=== PATIENT | female | born 1950 | race Caucasian/White ===

== ENCOUNTER → 2017-10-04 | Outpatient (CLI) | payer MEDICARE ==
--- NOTE | 2017-10-04 13:02 | BD ---
EXAMINATION TYPE: Axial Bone Density DATE OF EXAM: 10/04/2017 COMPARISON: NONE CLINICAL HISTORY: screening Height: 5'3 Weight: 149 FRAX RISK QUESTIONS: Family History (Parent hip fracture): y Glucocorticoids (More than 3mos): y (Ex: prednisone, prednisolone, methylprednisolone, dexamethasone, and hydrocortisone). Secondary Osteoporosis: Rheumatoid Arthritis: y RISK FACTORS HISTORY OF FX: rt wrist age: child Surgery /Hip(right): total rt hip When: 2007 Postmenopausal woman: MEDICATIONS: Prednisone or other steroids: y How Lon weeks Additional Medications: blood pressure, rheumatoid arthritis, acid reflux Additional History: EXAM MEASUREMENTS: Bone mineral densitometry was performed using the INFIMET System. Bone mineral density as measured about the Lumbar spine is: ----- L1-L4(G/cm2): 1.377 T Score Values are as follows: ----- L2: 0.1 ----- L3: 2.1 ----- L4: 2.2 ----- L1-L4:1.1 Bone mineral density about the L hip (g/cm2): 0.850 T Score values are as follows: -----L Neck: -0.8 -----L Total: -1.3 IMPRESSION: Osteopenia (T Score between -2.5 and -1) overall in the left hip.. There is slightly increased risk of fracture and the patient may be considered for treatment. Re-Screen 2-5 years. NOTE: T-SCORE=SD OF THE YOUNG ADULT MEAN.
--- NOTE | 2017-10-05 12:40 | MM ---
Reason for exam: screening (asymptomatic). Last mammogram was performed 2 years and 6 months ago. History: Patient is postmenopausal. Took estrogen for 8 years beginning at age 54. Physical Findings: A clinical breast exam by your physician is recommended on an annual basis and results should be correlated with mammographic findings. MG 3D Screening Mammo W/Cad Bilateral CC and MLO view(s) were taken. Prior study comparison: April 11, 2015, right breast MG 3d work up w/cad RT. April 02, 2015, bilateral MG screening mammo w CAD. The breast tissue is heterogeneously dense. This may lower the sensitivity of mammography. There is no discrete abnormality. No significant changes when compared with prior studies. ASSESSMENT: Negative, BI-RAD 1 RECOMMENDATION: Routine screening mammogram of both breasts in 1 year.
== END | disposition home or self-care (01) ==
LOC: RADMAMWWP 11:21
PROVIDERS: ATTEND Family Medicine
DX: Z12.31 Encounter for screening mammogram for malignant neoplasm of breast (principal); Z13.820 Encounter for screening for osteoporosis; M85.852 Other specified disorders of bone density and structure, left thigh
CPT/HCPCS: 77063; 77067; 77080

== ENCOUNTER → 2018-11-02 | Outpatient (CLI) | payer MEDICARE ==
[2018-11-02 11:12] LABS: Prothrombin Time 10.4 sec (9.0-12.0)
[2018-11-02 11:20] LABS: Anisocytosis Slight; Basophils % (A) 0 %; Eosinophils # (A) 0.2 k/uL (0-0.7); Eosinophils % (A) 3 %; HCT 40.6 % (34.0-46.0); HGB 12.8 gm/dL (11.4-16.0); Hypochromasia Slight; Lymphocytes # (A) 1.6 k/uL (1.0-4.8); Lymphocytes % (A) 24 %; MCH 27.5 pg (25.0-35.0); MCHC 31.5 g/dL (31.0-37.0); MCV 87.3 fL (80.0-100.0); Monocytes # (A) 0.3 k/uL (0-1.0); Monocytes % (A) 5 %; Neutrophils # (A) 4.4 k/uL (1.3-7.7); Neutrophils % (A) 67 %; Platelet Count 258 k/uL (150-450); RBC 4.66 m/uL (3.80-5.40); RDW 16.8 % (11.5-15.5); WBC 6.6 k/uL (3.8-10.6)
[2018-11-02 11:31] LABS: Potassium 4.2 mmol/L (3.5-5.1)
== END | disposition home or self-care (01) ==
LOC: LABPAT 10:11
PROVIDERS: ATTEND Orthopaedic Surgery
DX: Z01.812 Encounter for preprocedural laboratory examination (principal); M16.12 Unilateral primary osteoarthritis, left hip
CPT/HCPCS: 36415; 80051; 85025; 85610; 87070

== ENCOUNTER 2018-11-13 08:47 | Inpatient (IN) | payer MEDICARE ==
[2018-11-06 13:23] VITALS: BMI 27.4
--- NOTE | 2018-11-13 00:36 | HP ---
HISTORY AND PHYSICAL Suzanne Alejandro is a 68-year-old patient seen with symptomatic left hip osteoarthritis. We discussed options for treatment. The patient elected to proceed left total hip arthroplasty via direct anterior approach. Consent was obtained. Medical clearance was provided by Dr. Sissy Taveras. PAST MEDICAL HISTORY: Hypertension. Rheumatoid arthritis, gastroesophageal reflux disease. PAST SURGICAL HISTORY: Tubal ligation, cholecystectomy, hysterectomy, bladder suspension surgery, right total hip arthroplasty. DAILY MEDICATIONS: Aspirin, Benicar, Cardizem, Nexium, Zyrtec. ALLERGIES: PENICILLIN. SOCIAL HISTORY: She denies tobacco use. PHYSICAL EVALUATION: Evaluation of the left hip reveals she has limited range of motion with severe pain. Positive hip impingement sign. Straight leg raise negative. Distal neurovascular exam is intact. RADIOGRAPHS: Radiographs of the left hip reveal severe osteoarthritic changes. IMPRESSION: 1. Left hip osteoarthritis. 2. Hypertension. 3. Gastroesophageal reflux disease. PLAN: Direct anterior left total hip arthroplasty. Surgery scheduled for 11/13/2018. MMODL / IJN: [id number] /
[~2018-11-13 08:47] MED LIST: ACETAMINOPHEN TAB 500 MG TAB PO ONE; DEXAMETHASONE SOD PHOSPHATE 10 MG/ML 1 ML VIAL IV ONE; LIDOCAINE 1% 20 ML VIAL (10MG/ML) FOR IV START INTRADERMA PRN; MELOXICAM 7.5 MG TAB PO ONE; MIDAZOLAM 2 MG/2 ML VIAL IV PRN; ROPIVACAINE 246.25 MG, EPINEPHrine 0.5 MG, KETOROLAC 30 MG, cloNIDine HCL/PF 80 MCG, WA... MISCELLANE ONE; TRANEXAMIC ACID 1,000 MG in SODIUM CHLORIDE 0.9% 100 ML IVPB ONE; fentaNYL (PF) 50 MCG/ML 2 ML AMP IV PRN
[2018-11-13] MEDS: LACTATED RINGERS 1,000 ML IV SCH ×3 (13:52→18:19)
[2018-11-13] MEDS ORDERED: DEXAMETHASONE SOD PHOSPHATE 10 MG/ML 1 ML VIAL IV ONE (14:15)
[2018-11-13] MEDS ORDERED: ONDANSETRON 4 MG/2 ML VIAL IVP ONE (14:15)
[2018-11-13] MEDS ORDERED: SODIUM CHLORIDE 0.9% 100 ML BAG ONE (14:59)
[2018-11-13] MEDS ORDERED: MIDAZOLAM 2 MG/2 ML VIAL ONE (14:59)
[2018-11-13] MEDS ORDERED: fentaNYL (PF) 50 MCG/ML 2 ML AMP ONE (14:59)
[2018-11-13] MEDS ORDERED: PHENYLEPHRINE-0.9% NACL SYG 1 MG/10 ML SYRINGE ONE (14:59)
[2018-11-13] MEDS ORDERED: TRANEXAMIC ACID 1,000 MG/10 ML VIAL ONE (14:59)
[2018-11-13] MEDS ORDERED: ePHEDrine SULFATE/0.9% NACL/PF 50 MG/5 ML SYRINGE IV ONE (14:59)
[2018-11-13] MEDS ORDERED: PROPOFOL 10 MG/ML 20 ML VIAL IV ONE (14:59)
[2018-11-13] MEDS ORDERED: LACTATED RINGERS 1,000 ML IV ONE (16:49)
[2018-11-13] MEDS ORDERED: hydrOXYzine PAMOATE 25 MG CAP PO PRN (16:53)
[2018-11-13] MEDS ORDERED: HYDROmorphone 1 MG/ML 1 ML SYRINGE IVP PRN (16:53)
[2018-11-13] MEDS ORDERED: HYDROmorphone 0.5 MG/0.5 ML SYRINGE IVP PRN ×2 (16:53)
[2018-11-13] MEDS ORDERED: ACETAMINOPHEN TAB 325 MG TAB PO PRN (16:53)
[2018-11-13] MEDS ORDERED: NALOXONE 0.4 MG/ML 1 ML VIAL IV PRN (16:53)
--- NOTE | 2018-11-13 16:53 | P.OP ---
Date of Procedure: 11/13/18 Preoperative Diagnosis: Left hip osteoarthritis Postoperative Diagnosis: Left hip osteoarthritis Procedure(s) Performed: Direct anterior left total hip arthroplasty Implants: 1. Depuy Corail KA size 12 with collar press-fit femoral stem 2. Depuy pinnacle 54 mm press-fit acetabular shell 3. Depuy pinnacle polyethylene acetabular liner neutral 54 mm OD 36 mm ID 4. Biolox delta ceramic femoral head +5 36 mm Anesthesia: local, spinal Surgeon: Byron Braden Domestic Cleaner #1: Michael Hess Estimated Blood Loss (ml): 500 Pathology: other (Femoral head) Condition: stable Disposition: PACU Indications for Procedure: 68-year-old patient seen with symptomatic left hip osteoarthritis. After treatment options were discussed, she elected to proceed with total hip arthroplasty. Operative Findings: See description of procedure Description of Procedure: The patient was taken to the operative suite. Patient underwent a spinal anesthetic by the department of anesthesia. Patient was then transferred to the [place] table. Patient was given preoperative IV antibiotics and TXA. Both lower extremities were placed in standard leg spars. The hip was then prepped and draped in the normal sterile orthopedic fashion. A standard anterior incision was made beginning 3 cm lateral and 1 cm distal to the ASIS extending 10 cm. Dissection was then carried down through the subcutaneous soft tissues down to the fascia overlying the tensor fascia sara. An incision was now made through the fascia. Careful dissection was taken down exposing the tensor fascia sara muscle. A Cobra retractor was now placed along the medial femoral neck and a second one along the lateral femoral neck. The venous circumflex vessels were now identified, cauterized and clipped. We identified the anterior hip capsule. An incision was made through the hip capsule along the lateral border. I performed a partial anterior capsulectomy. Retractors were now placed around the femoral neck itself. A femoral neck cut was now made with a sagittal saw. It was completed with an osteotome at the lateral neck area. The femoral head was now removed without difficulty. The extremity was now rotated to 45 of external rotation. It was locked in position. Residual labrum was now debrided out. Serial reaming was performed of the acetabulum while Bobby MARIN assisted holding an anterior retractor for exposure. Once we reached the appropriate size and a trial was position and fit nicely. The appropriate size was now chosen opened and made available. It was introduced into the acetabulum without difficulty. The C-arm/fluoroscopy was now brought into the operative field. We made sure we had a true AP pelvic view. We now under direct C- arm/fluoroscopy introduced into the acetabular component with appropriate version and inclination. I held the cup in appropriate position well Bobby MARIN used a mallet to seat the acetabular component. I noted the component now to be well seated and stable. Acetabular cup introduce her was removed. The C-arm was pulled back. An appropriate liner was introduced and clicked into position. It was felt to be stable. At this point retractors were removed. The extremity was now placed into 120 external rotation with no traction. The leg was now dropped to the ground and adducted. Appropriate retractors were now positioned along the proximal femur. We also placed our femoral look into position. Additional capsular releasing was performed to gain access to the proximal femur. We now used a box osteotome. A canal finder was now utilized. Serial broaching was now performed with the assistance of Bobby MARIN tapping the broaches down with a mallet while held the broach in appropriate rotation and position. This was done until we reached the appropriate size with good overall rotational stability. Appropriate calcar planing was performed. A trial head/neck was placed into position. The hip was now reduced. The C- arm/fluoroscopy was brought back into the operative field. A spot film was obtained of the nonoperative hip. A spot film was obtained of the trial components. Overlays were performed, we noted good overall alignment and positioning for determining leg length. The C-arm/fluoroscopy was pulled back. Retractors were repositioned and the hip was dislocated. The leg was again taken down to the ground and adducted. Appropriate retractors were repositioned as well as the femoral hook. All trial components were removed. The femoral implant was opened along with the femoral head. The femoral implant was introduced on the appropriate handle into our pre-broached area. I held the component position well Bobby MARIN used a mallet to seat the femoral component. The femoral component was now noted to be well seated and stable.. The femoral head was introduced with good positioning and fixation noted. Retractors were now removed. The hip was now reduced. There appeared be good positioning of the hip confirmed on intraoperative fluoroscopy. Spot films were obtained to document this. A second gram of TXA was given. The deep and superficial soft tissues were infiltrated with local analgesic. Bipolar cautery had been utilized intermittently through the procedure for hemostasis. The wound was irrigated copiously with pulse lavage mechanical irrigation. The fascia was repaired with Vicryl suture. The subcutaneous soft tissues were repaired in layers with Vicryl suture. The skin was approximated with pernio/Dermabond. Sterile dressings were applied. Patient was then awakened, transferred to a bed and taken to recovery in stable condition. Bobby MARIN assisted with the complex procedure.
[2018-11-13] MEDS: traMADol 50 MG TAB PO PRN (20:06)
[2018-11-13] MEDS ORDERED: SENNOSIDES-DOCUSATE SODIUM 1 EACH TAB PO SCH (21:00)
--- NOTE | 2018-11-13 21:34 | XR ---
EXAMINATION TYPE: XR Hip Limited LT DATE OF EXAM: 11/13/2018 COMPARISON: NONE HISTORY: Postop TECHNIQUE: 2 views submitted. FINDINGS: There is postsurgical change in near anatomic alignment. There is soft tissue edema and emphysema. IMPRESSION: 1. Postoperative change. Appears in near-anatomic alignment.
[2018-11-13] MEDS: ONDANSETRON 4 MG/2 ML VIAL IVP PRN (23:31)
[2018-11-14] MEDS: ONDANSETRON 4 MG/2 ML VIAL IVP PRN (05:24)
[2018-11-14 07:11] VITALS: BP 106/67; PULSE 79; RESP 16; TEMP 97.8
[2018-11-14] MEDS: LACTATED RINGERS 1,000 ML IV SCH ×3 (07:11→08:08)
[2018-11-14 08:13] LABS: Anisocytosis Slight; Basophils % (A) 0 %; Eosinophils % (A) 0 %; HCT 33.2 % (34.0-46.0); HGB 10.4 gm/dL (11.4-16.0); Hypochromasia Slight; Lymphocytes % (A) 6 %; MCH 26.9 pg (25.0-35.0); MCHC 31.2 g/dL (31.0-37.0); MCV 86.1 fL (80.0-100.0); Mean Platelet Volume 7.5; Monocytes # (A) 0.5 k/uL (0-1.0); Monocytes % (A) 3 %; Neutrophils # (A) 14.7 k/uL (1.3-7.7); Neutrophils % (A) 90 %; Platelet Count 226 k/uL (150-450); RBC 3.86 m/uL (3.80-5.40); RDW 16.9 % (11.5-15.5); WBC 16.4 k/uL (3.8-10.6)
[2018-11-14] MEDS ORDERED: MELOXICAM 7.5 MG TAB PO SCH (09:00)
[2018-11-14] MEDS ORDERED: ENOXAPARIN 40 MG/0.4 ML SYRINGE SQ SCH (09:00)
[2018-11-14] MEDS ORDERED: FAMOTIDINE 20 MG TAB PO SCH (09:00)
[2018-11-14 09:03] LABS: ALT 30 U/L (9-52); AST 39 U/L (14-36); African American GFR (CKD) >90 (>60 ml/min/1.73 sqM); Albumin 3.5 g/dL (3.5-5.0); Alkaline Phosphatase 83 U/L (38-126); Anion Gap 8 mmol/L; Blood Urea Nitrogen 15 mg/dL (7-17); Calcium 9.1 mg/dL (8.4-10.2); Carbon Dioxide 26 mmol/L (22-30); Chloride 105 mmol/L (98-107); Glucose 115 mg/dL (74-99); Potassium 3.5 mmol/L (3.5-5.1); Sodium 139 mmol/L (137-145); Total Bilirubin 0.4 mg/dL (0.2-1.3)
--- NOTE | 2018-11-14 09:43 | FL ---
EXAMINATION TYPE: FL guidance operating room DATE OF EXAM: 11/13/2018 HISTORY: Flouroscopy time 20 seconds of fluoroscopy provided. IMPRESSION: 1. Fluoroscopy time.
[2018-11-14] MEDS ORDERED: ONDANSETRON 4 MG/2 ML VIAL IVP PRN (10:01)
--- NOTE | 2018-11-14 10:30 | P.CONS ---
History of Present Illness - Reason for Consult Consult date: 11/14/18 Medical management Requesting physician: Byron Braden - History of Present Illness This is a 68-year-old female patient of Dr. Taveras. Patient has known past medical history of osteoarthritis presented to the hospital for an elective left hip arthroplasty with Dr. Braden. Patient is currently postop day 1. Patient has known past medical history of rheumatoid arthritis when she follows with Dr. Friend. Patient is maintained on methotrexate and Arava. Additional medical history includes GERD, hearing disorder, essential hypertension, mitral valve prolapse, osteoarthritis and ex-smoker. Patient reports that she did follow with cardiology for her mitral valve prolapse but it was reported that treatment was needed. Patient is currently resting comfortably in bed. Reports that she has been up ambulating to bathroom. Patient is having some nausea. Zofran ordered when necessary. Patient maintained on Lovenox for DVT prophylaxis per orthopedic services. This time patient denies chest pain or shortness of breath. Patient denies nausea vomiting or diarrhea. Patient denie s any urinary burning or frequency. Review of Systems please refer to HPI otherwise unremarkable Past Medical History Past Medical History: GERD/Reflux, Hearing Disorder / Deafness, Hypertension, Mitral Valve Prolapse (MVP), Osteoarthritis (OA), Rheumatoid Arthritis (RA), Skin Disorder Additional Past Medical History / Comment(s): MVP, NO TX REQUIRED. SL HEARING LOSS LT EAR. HX PSORIASIS ON SCALP. RAYNAUD'S. SCLERODERMA. WEAKNESS RT LEG. History of Any Multi-Drug Resistant Organisms: None Reported Past Surgical History: Cholecystectomy, Joint Replacement, Tubal Ligation Additional Past Surgical History / Comment(s): TOTAL RT HIP; LATER REPAIR ADDUCTOR MUSCLE. Past Anesthesia/Blood Transfusion Reactions: Previous Problems w/ Anesthesia Additional Past Anesthesia/Blood Transfusion Reaction / Comm: WITH TL SHE AWOKE WITH INITIAL DIFFICULTY BREATHING. Past Psychological History: No Psychological Hx Reported Smoking Status: Former smoker Past Alcohol Use History: Occasional Additional Past Alcohol Use History / Comment(s): SMOKED AGE 16, 2 PPD, QUIT 1988 Past Drug Use History: None Reported - Past Family History Mother Brother(s) Family Medical History: Cancer, Deep Vein Thrombosis (DVT) Additional Family Medical History / Comment(s): MOTHER - LYMPHOMA CA, DVT; BROTHER - CA RECTUM Father Family Medical History: Cancer Additional Family Medical History / Comment(s): LUNG CA Medications and Allergies Home Medications Medication Instructions Recorded Confirmed Type Acetaminophen [Tylenol Extra 1,000 mg PO Q6H PRN 11/06/18 11/13/18 History Strength] Aspirin [Children's Aspirin] 81 mg PO DAILY 11/06/18 11/13/18 History Biotin 10,000 mcg PO DAILY 11/06/18 11/13/18 History Calcium Carbonate/Vitamin D3 2 tab PO DAILY 11/06/18 11/13/18 History [Calcium 600-Vit D3 800 Caplet] Cetirizine HCl [Zyrtec] 10 mg PO DAILY 11/06/18 11/13/18 History Clobetasol Propionate [Clobex .05% 1 applic TOPICAL DAILY PRN 11/06/18 11/13/18 History Shampoo] Diltiazem Cd [Cardizem Cd] 180 mg PO HS 11/06/18 11/13/18 History Esomeprazole Magnesium [NexIUM] 40 mg PO DAILY 11/06/18 11/13/18 History Fluticasone Nasal [place] [Flonase 2 spr EA NOSTRIL DAILY 11/06/18 11/13/18 History Nasal [place]] Folic Acid 0.8 mg PO DAILY 11/06/18 11/13/18 History Ibuprofen [Motrin Ib] 400 mg PO Q6H PRN 11/06/18 11/13/18 History Leflunomide [Arava] 20 mg PO DAILY 11/06/18 11/13/18 History Methotrexate Sodium [Methotrexate] 25 mg PO ARAGON 11/06/18 11/13/18 History Olmesartan/Hydrochlorothiazide 1 tab PO DAILY 11/06/18 11/13/18 History [Benicar Hct 20-12.5 mg Tablet] Allergies Allergy/AdvReac Type Severity Reaction Status Date / Time diflunisal [From Dolobid] Allergy Rash/Hives Verified 11/13/18 13:41 Penicillins Allergy Rash/Hives Verified 11/13/18 13:41 Physical Exam Vitals: Vital Signs Temp Pulse Pulse Resp BP Pulse Ox 11/14/18 07:00 97.8 F 79 16 106/67 95 11/14/18 01:49 97.7 F 81 18 99/62 95 11/13/18 20:17 89 116/71 93 L 11/13/18 20:02 84 112/75 94 L 11/13/18 19:47 85 122/75 92 L 11/13/18 19:32 84 108/69 89 L 11/13/18 19:17 77 114/72 93 L 11/13/18 19:02 77 126/79 95 11/13/18 18:47 76 118/76 95 11/13/18 18:32 84 118/65 95 11/13/18 18:17 84 115/75 94 L 11/13/18 18:06 97.9 F 73 15 125/73 94 L 11/13/18 18:02 97.9 F 83 111/70 96 11/13/18 17:47 77 18 116/60 98 11/13/18 17:32 67 18 131/57 96 11/13/18 17:16 66 18 128/60 100 11/13/18 16:57 98.7 F 74 18 127/57 98 11/13/18 13:33 98.3 F 77 16 161/72 95 Intake and Output 11/13/18 11/14/18 11/14/18 22:59 06:59 14:59 Intake Total 1950 Output Total 1100 Balance 850 Intake: IV 1950 Output: Urine 600 Estimated Blood Loss 500 Other: Voiding Method Toilet Toilet Head normoce phalic Neck supple Lungs clear to auscultation bilaterally no wheezing or crackles Heart regular rate and rhythm S1-S2, no rub or gallop Abdomen is soft nontender nondistended positive bowel sounds no hepatosplenomegaly Extremities no edema. Left hip dressing is clean dry and intact Neuro alert and orientated to 3 Results CBC & Chem 7: 11/14/18 07:50 11/14/18 07:58 Labs: Abnormal Lab Results - Last 24 Hours (Table) 11/14/18 11/14/18 Range/Units 07:50 07:58 WBC 16.4 H (3.8-10.6) k/uL Hgb 10.4 L (11.4-16.0) gm/dL Hct 33.2 L (34.0-46.0) % RDW 16.9 H (11.5-15.5) % Neutrophils # 14.7 H (1.3-7.7) k/uL Glucose 115 H (74-99) mg/dL AST 39 H (14-36) U/L Total Protein 6.0 L (6.3-8.2) g/dL Assessment and Plan Assessment: 1. Left hip osteoarthritis status post total left hip arthroplasty with Dr. Braden. Patient currently is postop day 1. Patient is maintained on Lovenox for DVT prophylaxis pain meds per orthopedic services. 2. History of rheumatoid arthritis. Patient does follow with Dr. Friend. Patient maintained on methotrexate and Arava 3. History of mitral valve prolapse. Patient reports that she did follow cardiology no treatment required 4. History of psoriasis 5. History of GERD 6. History of hearing disorder 7. History of cholecystectomy 8. Ex-smoker 9. Leukocytosis. White blood cell elevated at 16.4. Patient did receive Decadron procedure. Patient denies any acute symptoms will order urinary analysis and continue to monitor DVT prophylaxis Lovenox. GI prophylaxis Pepcid Thank you for this consultation we'll continue to follow patient closely throughout stay Time with Patient: Greater than 30 (Greater than 60% of the total time spent in counseling and coordination of care. I performed an examination of the patient and discussed their management with the Nurse Practitioner. I have reviewed the Nurse Practitioner's notes and agree with the documented findings and plan of care)
--- NOTE | 2018-11-14 11:39 | P.PN ---
Subjective Progress Note Date: 11/14/18 Principal diagnosis: Status post direct anterior left total hip arthroplasty Patient evaluated at bedside, she's resting in a hospital chair. She's done very well with physical therapy. She denies any chest pain shortness of breath. She did have some nausea, this has improved. Objective - Vital Signs Vital signs: Vital Signs Temp 97.8 F 11/14/18 07:00 Pulse 79 11/14/18 07:00 Resp 16 11/14/18 07:00 BP 106/67 11/14/18 07:00 Pulse Ox 95 11/14/18 07:00 Intake & Output 11/13/18 11/14/18 11/14/18 18:59 06:59 18:59 Intake Total 2150 Output Total 500 600 Balance 1650 -600 Intake: IV 2150 Output: Urine 600 Estimated Blood Loss 500 Other: Voiding Method Toilet Toilet - Exam Left lower extremity: Incision is clean, dry, and intact. The exofin fusion tape is in good condition. There is minimal soft tissue swelling and ecchymosis surrounding the medial and lateral aspects of the incision. Calf is soft, no tenderness with palpation. Plantar flexion, dorsiflexion, EHL, FHL are intact. Sensory exam to light touch throughout the extremity is intact, dorsal pedis pulses 2+. - Labs CBC & Chem 7: 11/14/18 07:50 11/14/18 07:58 Labs: Abnormal Lab Results - Last 24 Hours (Table) 11/14/18 11/14/18 Range/Units 07:50 07:58 WBC 16.4 H (3.8-10.6) k/uL Hgb 10.4 L (11.4-16.0) gm/dL Hct 33.2 L (34.0-46.0) % RDW 16.9 H (11.5-15.5) % Neutrophils # 14.7 H (1.3-7.7) k/uL Glucose 115 H (74-99) mg/dL AST 39 H (14-36) U/L Total Protein 6.0 L (6.3-8.2) g/dL Assessment and Plan Plan: Assessment: Postop day #1 status post direct anterior left total hip arthroplasty Plan: Pain controlled, plan for discharge on oral medication GI and DVT prophylaxis, aspirin 81 mg twice a day Daily dressing changes, wound care was discussed Home physical therapy and nursing after discharge Medical recommendations Discharge planning: Plan for discharge to home today Time with Patient: Less than 30
--- NOTE | 2018-11-14 11:44 | P.DS ---
Providers Date of admission: 11/13/18 16:46 Expected date of discharge: 11/14/18 Attending physician: Byron Braden Consults: 11/13/18 16:53 Consult Physician Routine Consulting Provider: Stephanie Leach Consult Reason/Comments: Medical management Do you want consulting provider notified?: Yes Primary care physician: Sissy Taveras Hospital Course: Date of admission: 11/13/2018 Date of discharge: 11/14/2018 Admission diagnosis: Status post direct anterior left total hip arthroplasty Discharge diagnosis: Same Attending physician: Dr. Braden Surgical procedures: Direct anterior left total hip arthroplasty Brief history: Patient is a 68-year-old female with a history of progressive primary left hip osteoarthritis. At this point patient has failed conservative treatment measures and has opted to proceed with a elective direct anterior left total hip arthroplasty. Hospital course: Details of patient's surgery can be found in operative report. Patient tolerated the procedure well and was subsequently transported to orthopedic floor. Patient's orthopeidc and medical care was provided daily. Patient had daily laboratory tests performed for evaluation of overall blood counts. Patient had daily physical therapy to include strengthening range of motion as well as education with walker ambulation. Patient was treated with Lovenox for their postoperative DVT prophylaxis during their inpatient stay. Patient was noted to have a relatively uneventful postoperative course. Patient reported satisfactory pain control with oral pain medications by postoperative day 0. Patient showed satisfactory progress with physical therapy. Patient moved steadily through the program and had no difficulty meeting the goals by postoperative day 1. Given patient's otherwise satisfactory course and having met physical therapy goals, plan is to discharge patient home on postoperative day 1. Discharge condition/disposition: Patient will be discharged home in stable condition. Discharge medications: Instructions are given on resumption of patient's normal daily medications per primary care recommendation, in addition patient will be prescribed tramadol 50 mg, Colace 100 mg. Discharge instructions: 1. Wound care and infection precautions, keep incision dry and covered while showering, no lotions, creams, moisturizers. No soaking, tubs, pools, hottubs. Do not scrub over the incision. 2. Weight-bear as tolerated with walker / cane until follow-up. 3. Ice and elevate when necessary. Do not exceed 20 minutes per hour with ice pack. 4. Utilize compression sleeve until seen at first follow up appointment. 5. Visiting nursing care. 6. Home physical therapy. 7. Pain meds and anticoagulants per prescription. 8. Pain medication has potential to cause constipation. Increase oral fluid and fiber intake. Contact primary care provider if you have not had a bowel movement within 48 hours after discharge 9. No anti-inflammatory medication until discussed at first post operative visit, this including Motrin, Aleve, Mobic, Diclofenac. 10. Follow up in office at 2 weeks postop with Bobby Hess PA-C 11. Follow up with your primary care doctor 7-10 days after discharge. 12. Contact [facility] with any questions, . Procedures: Direct anterior left total hip arthroplasty Patient Condition at Discharge: Good Plan - Discharge Summary Discharge Rx Participant: No New Discharge Prescriptions: New Aspirin [Adult Low Dose Aspirin EC] 81 mg PO BID #60 tablet. Docusate [Colace] 100 mg PO DAILY #30 capsule traMADol HCl [Ultram] 50 mg PO Q6H PRN #28 tab PRN Reason: Pain No Action Ibuprofen [Motrin Ib] 400 mg PO Q6H PRN PRN Reason: Pain Folic Acid 0.8 mg PO DAILY Calcium Carbonate/Vitamin D3 [Calcium 600-Vit D3 800 Caplet] 2 tab PO DAILY Biotin 10,000 mcg PO DAILY Cetirizine HCl [Zyrtec] 10 mg PO DAILY Methotrexate Sodium [Methotrexate] 25 mg PO ARAGON Leflunomide [Arava] 20 mg PO DAILY Olmesartan/Hydrochlorothiazide [Benicar Hct 20-12.5 mg Tablet] 1 tab PO DAILY Esomeprazole Magnesium [NexIUM] 40 mg PO DAILY Diltiazem Cd [Cardizem Cd] 180 mg PO HS Acetaminophen [Tylenol Extra Strength] 1,000 mg PO Q6H PRN PRN Reason: Pain Fluticasone Nasal Conway [Flonase Nasal Conway] 2 spr EA NOSTRIL DAILY Clobetasol Propionate [Clobex .05% Shampoo] 1 applic TOPICAL DAILY PRN PRN Reason: PSORIASIS Discharge Medication List Acetaminophen [Tylenol Extra Strength] 1,000 mg PO Q6H PRN 11/06/18 [History] Biotin 10,000 mcg PO DAILY 11/06/18 [History] Calcium Carbonate/Vitamin D3 [Calcium 600-Vit D3 800 Caplet] 2 tab PO DAILY 11/06/18 [History] Cetirizine HCl [Zyrtec] 10 mg PO DAILY 11/06/18 [History] Clobetasol Propionate [Clobex .05% Shampoo] 1 applic TOPICAL DAILY PRN 11/06/18 [History] Diltiazem Cd [Cardizem Cd] 180 mg PO HS 11/06/18 [History] Esomeprazole Magnesium [NexIUM] 40 mg PO DAILY 11/06/18 [History] Fluticasone Nasal Conway [Flonase Nasal Conway] 2 spr EA NOSTRIL DAILY 11/06/18 [ History] Folic Acid 0.8 mg PO DAILY 11/06/18 [History] Ibuprofen [Motrin Ib] 400 mg PO Q6H PRN 11/06/18 [History] Leflunomide [Arava] 20 mg PO DAILY 11/06/18 [History] Methotrexate Sodium [Methotrexate] 25 mg PO ARAGON 11/06/18 [History] Olmesartan/Hydrochlorothiazide [Benicar Hct 20-12.5 mg Tablet] 1 tab PO DAILY 11/06/18 [History] Aspirin [Adult Low Dose Aspirin EC] 81 mg PO BID #60 tablet. 11/14/18 [Rx] Docusate [Colace] 100 mg PO DAILY #30 capsule 11/14/18 [Rx] traMADol HCl [Ultram] 50 mg PO Q6H PRN #28 tab 11/14/18 [Rx] Follow up Appointment(s)/Referral(s): Sissy Taveras MD [Primary Care Provider] - 11/21/18 1:15 pm Byron Braden DO [Doctor of Osteopathic Medicine] - 11/29/18 3:20 pm [facility], [NON-STAFF] - Activity/Diet/Wound Care/Special Instructions: Orthopedic Discharge Instructions: 1. Wound care and infection precautions, keep incision dry and covered while showering, no lotions, creams, moisturizers. No soaking, pools, hot tubs. Do not scrub over incision. 2. Weight-bear as tolerated with walker / cane until follow-up. 3. Ice and elevate when necessary. Do not exceed 20 minutes per hour with ice pack. 4. Utilize compression sleeve until seen at first follow up appointment. 5. Pain meds and anticoagulants per prescription. 6. Pain medication has potential to cause constipation. Increase oral fluid and fiber intake. Contact primary care provider if you have not had a bowel movement within 48 hours after discharge. 7. No anti-inflammatory medication until discussed at first post operative visit, this including Motrin, Aleve, Mobic, Diclofenac. 8. Follow up in office at 2 weeks postop with Bobby Hess PA-C 9. Follow up with your primary care doctor 7-10 days after discharge. 10. Contact [facility] with any questions, . Discharge Disposition: HOME WITH HOME HEALTH SERVICES
[2018-11-14 12:06] LABS: Appearance,Urine Cloudy (Clear); Bilirubin,Urine Negative (Negative); Blood,Urine Negative (Negative); Color,Urine Yellow; Glucose,Urine (UA) Negative (Negative); Ketones,Urine Trace (Negative); Leukocyte Esterase,Urine Negative (Negative); Mucus,Urine Many /hpf; Nitrite,Urine Negative (Negative); Protein,Urine Trace (Negative); Squamous Epithelial Cell,Urine 10 /hpf (0-4); Urobilinogen,Urine <2.0 mg/dL (<2.0); WBC,Urine 1 /hpf (0-5)
[2018-11-14] MEDS: traMADol 50 MG TAB PO PRN (13:27)
[2018-11-14] MEDS ORDERED: DILTIAZEM CD 180 MG CAP.ER.24H PO SCH (21:00)
[2018-11-15] MEDS ORDERED: LORATADINE 10 MG TAB PO SCH (09:00)
[2018-11-15] MEDS ORDERED: LOSARTAN 50 MG TAB PO SCH (09:00)
[2018-11-15] MEDS ORDERED: LEFLUNOMIDE 20 MG TAB PO SCH (09:00)
[2018-11-15] MEDS ORDERED: HYDROCHLOROTHIAZIDE 12.5 MG CAP PO SCH (09:00)
[2018-11-15] MEDS ORDERED: CALCIUM CARB-VIT D 500MG-200UN 1 EACH TAB PO SCH (09:00)
[2018-11-15] MEDS ORDERED: FOLIC ACID 1 MG TAB PO SCH (09:00)
[2018-11-15] MEDS ORDERED: ASPIRIN 81 MG PO SCH (09:00)
[2018-11-15] MEDS ORDERED: FLUTICASONE 50MCG/SPRAY NASAL 16GM EA NOSTRIL SCH (09:00)
== END 2018-11-14 14:16 | disposition home health service (06) | DRG 470 ==
LOC: 2ORMAIN 16:46 → 4SSUR 18:00
PROVIDERS: ADMIT Orthopaedic Surgery; ATTEND Orthopaedic Surgery
PROC: 0SRB04A Replacement of Left Hip Joint with Ceramic on Polyethylene Synthetic Substitute, Uncemented, Open Approach (ICD-10-PCS; principal; 2018-11-13 15:25)
DX: M16.12 Unilateral primary osteoarthritis, left hip (principal); M06.9 Rheumatoid arthritis, unspecified; M34.9 Systemic sclerosis, unspecified; I73.00 Raynaud's syndrome without gangrene; I10 Essential (primary) hypertension; D72.829 Elevated white blood cell count, unspecified; I34.1 Nonrheumatic mitral (valve) prolapse; K21.9 Gastro-esophageal reflux disease without esophagitis; L40.9 Psoriasis, unspecified; H91.92 Unspecified hearing loss, left ear; Z79.82 Long term (current) use of aspirin; Z79.899 Other long term (current) drug therapy; Z87.891 Personal history of nicotine dependence; Z96.641 Presence of right artificial hip joint; Z90.49 Acquired absence of other specified parts of digestive tract; Z90.710 Acquired absence of both cervix and uterus; Z98.890 Other specified postprocedural states; Z98.51 Tubal ligation status; Z88.0 Allergy status to penicillin; Z88.8 Allergy status to other drugs, medicaments and biological substances; Z83.2 Family history of diseases of the blood and blood-forming organs and certain disorders involving the immune mechanism; Z80.7 Family history of other malignant neoplasms of lymphoid, hematopoietic and related tissues; Z80.0 Family history of malignant neoplasm of digestive organs; Z80.1 Family history of malignant neoplasm of trachea, bronchus and lung
CPT/HCPCS: 73501; 80053; 81001; 85025; 86850; 86900; 86901; 88300

== ENCOUNTER → 2020-01-03 | Outpatient (CLI) | payer MEDICARE ==
--- NOTE | 2020-01-03 16:58 | XR ---
EXAMINATION TYPE: XR Hip Complete LT DATE OF EXAM: 01/03/2020 CLINICAL HISTORY: Pain in left hip since replacement last October TECHNIQUE: AP and frogleg views of the left hip are obtained. COMPARISON: Left hip radiograph 08/22/2019 FINDINGS: Left hip arthroplasty normal alignment, with no evidence of dislocation, hardware fracture , or significant loosening. There is no acute fracture or dislocation of the left hip. The overlying soft tissue appears unremarkable. IMPRESSION: Left hip total arthroplasty with no evidence of hardware failure.
== END | disposition home or self-care (01) ==
LOC: RADXRMAIN 13:36
PROVIDERS: ATTEND Family Medicine
DX: M25.552 Pain in left hip (principal); Z96.642 Presence of left artificial hip joint
CPT/HCPCS: 73502

== ENCOUNTER → 2020-08-08 | Outpatient (CLI) | payer MEDICARE | END | disposition home or self-care (01) | LOC: LABWHC1 16:06 | PROVIDERS: ATTEND Family Medicine | DX: Z53.9 Procedure and treatment not carried out, unspecified reason (principal) ==

== ENCOUNTER → 2020-08-29 | Outpatient (CLI) | payer MEDICARE ==
--- NOTE | 2020-09-03 13:32 | MM ---
Reason for exam: screening (asymptomatic). Last mammogram was performed 2 years and 11 months ago. History: Patient is postmenopausal. Took estrogen for 8 years beginning at age 54. Physical Findings: A clinical breast exam by your physician is recommended on an annual basis and results should be correlated with mammographic findings. MG 3D Screening Mammo W/Cad Bilateral CC and MLO view(s) were taken. Prior study comparison: October 04, 2017, bilateral MG 3d screening mammo w/cad. April 11, 2015, right breast MG 3d work up w/cad RT. There are scattered fibroglandular densities. There is chronic nodularity in the left breast. ASSESSMENT: Negative, BI-RAD 1 RECOMMENDATION: Routine screening mammogram of both breasts in 1 year.
== END | disposition home or self-care (01) ==
LOC: RADMAMWWP 11:35
PROVIDERS: ATTEND Family Medicine
DX: Z12.31 Encounter for screening mammogram for malignant neoplasm of breast (principal); Z78.0 Asymptomatic menopausal state
CPT/HCPCS: 77063; 77067

== ENCOUNTER → 2021-10-01 | Outpatient (CLI) | payer MEDICARE ==
--- NOTE | 2021-10-01 13:25 | BD ---
EXAMINATION TYPE: Axial Bone Density DATE OF EXAM: 10/01/2021 COMPARISON: NONE CLINICAL HISTORY: 71 years year old Female. ICD-10 CODE: Z78.0 ASYMPTOMATIC MENOPAUSAL STATE Height: 63 Weight: 151 FRAX RISK QUESTIONS: Alcohol (3 or more units per day): NO Family History (Parent hip fracture): YES MOTHER Glucocorticoids (More than 3mos): NO History of Fracture in Adulthood: NO Secondary Osteoporosis: 1. Type 1 Diabetes: NO 2. Hyperthyroidism: NO 3. Menopause before 45: NO 4. Malnutrition: NO 5. Chronic liver disease: NO Rheumatoid Arthritis: YES Current Tobacco Use: NO RISK FACTORS HISTORY OF: Hip Fracture (Right/Left): NO Spine Fracture: NO History of Wrist Fracture: YES, RT WRIST When: AGE 11 Surgery to Spine/Hip(right/left)/Wrist (right/left): BILAT HIPS, When: RT 2007, LT 2018 Family History of Osteoporosis: NO Active: YES Diet low in dairy products/other sources of calcium: YES Postmenopausal woman: YES Take estrogen and/or progesterone medications: NO Lost more than 2 inches in height since high school: NO Frequent falls: NO Poor Health: NO Hyperparathyroidism: NO Adrenal Insufficiency: NO MEDICATIONS: Prednisone or other steroids: NO Thyroid Medications: NO Osteoporosis Medications: NO Additional Medications: METHOTREXATE, ARABAN, NEXIUM, BP MEDS, VIT D, BIOTENE, FOLIC ACID Additional History: EXAM MEASUREMENTS: Bone mineral densitometry was performed using the [employer]. Bone mineral density as measured about the Lumbar spine is: ----- L1-L4(G/cm2):1.186 T Score Values are as follows: ----- L1: -1.7 ----- L2: -1.7 ----- L3: 0.6 ----- L4: 2.4 ----- L1-L4: 0.1 BASELINE STUDY Bone mineral density about the L Wrist (g/cm2): 0.330 T Score values are as follows: -----Dist. R+U: -3.0 -----Prox. R+U: -3.2 -----Radius total: -3.9 BASELINE STUDY FRAX%s: NO FRAX'S DUE TO BILATERAL HIP REPLACEMENTS. IMPRESSION: Osteoporosis (T Score less than -2.5). There is increased fracture risk and therapy is usually indicated based on age. Re-Screen 1-2 years. NOTE: T-SCORE=SD OF THE YOUNG ADULT MEAN.
--- NOTE | 2021-10-02 09:24 | MM ---
Reason for Exam: Screening (asymptomatic). Last mammogram was performed 1 year(s) and 1 month(s) ago. Patient History: Menarche at age 16. First Full-Term at age 21. Hysterectomy at age 54. Postmenopausal. Estrogen for 8 years from age 54 until age 62. Risk Values: Jammie 5 year model risk: 1.1%. NCI Lifetime model risk: 3.5%. Prior Study Comparison: 08/16/2013 Screening Mammogram, Unknown. 04/02/2015 Bilateral Screening Mammogram, [facility]. 04/11/2015 Right Diagnostic Mammogram, [facility]. 10/04/2017 Bilateral Screening Mammogram, [facility]. 08/29/2020 Bilateral Screening Mammogram, [facility]. Tissue Density: The breast tissue is heterogeneously dense. This may lower the sensitivity of mammography. Findings: Analyzed By CAD. Stable benign skin lesion inferior medial right breast. There is no suspicious group of microcalcifications or new suspicious mass in either breast. Overall Assessment: Negative, BI-RAD 1 Management: Screening Mammogram of both breasts in 1 year. A clinical breast exam by your physician is recommended on an annual basis and results should be correlated with mammographic findings. Electronically signed and approved by: Andre Cornell M.D.
== END | disposition home or self-care (01) ==
LOC: RADMAMWWP 09:58
PROVIDERS: ATTEND Family Medicine
DX: Z12.31 Encounter for screening mammogram for malignant neoplasm of breast (principal); Z78.0 Asymptomatic menopausal state
CPT/HCPCS: 77063; 77067; 77080

== ENCOUNTER → 2022-10-05 | Outpatient (CLI) | payer MEDICARE ==
--- NOTE | 2022-10-06 18:57 | MM ---
Reason for Exam: Screening (asymptomatic). Last screening mammogram was performed 12 month(s) ago. Patient History: Menarche at age 16. First Full-Term at age 21. Hysterectomy at age 54. Postmenopausal. Estrogen for 8 years from age 54 until age 62. Risk Values: Jammie 5 year model risk: 1.1%. NCI Lifetime model risk: 3.3%. Prior Study Comparison: 10/04/2017 Bilateral Screening Mammogram, [facility]. 08/29/2020 Bilateral Screening Mammogram, [facility]. 10/01/2021 Bilateral MG 3D screening mammo w/cad, [facility]. Tissue Density: The breast tissue is heterogeneously dense. This may lower the sensitivity of mammography. Findings: Analyzed By CAD. There is no suspicious group of microcalcifications or new suspicious mass in either breast. Overall Assessment: Benign, BI-RAD 2 Management: Screening Mammogram of both breasts in 1 year. . Patient should continue monthly self-breast exams. A clinical breast exam by your physician is recommended on an annual basis. This exam should not preclude additional follow-up of suspicious palpable abnormalities. Note on Jammie scores and lifetime risk: 1. A Jammie score greater than 3% is considered moderate risk. If this is the case, consider specialist referral to assess eligibility for a risk reducing agent. 2. If overall lifetime risk for the development of breast cancer is 20% or higher, the patient may qualify for future screening with alternating mammogram and breast MRI. Electronically signed and approved by: Grayson Child M.D. Radiologist
== END | disposition home or self-care (01) ==
LOC: RADMAMWWP 13:29
PROVIDERS: ATTEND Family Medicine
DX: Z12.31 Encounter for screening mammogram for malignant neoplasm of breast (principal); Z78.0 Asymptomatic menopausal state
CPT/HCPCS: 77063; 77067

== ENCOUNTER → 2023-10-13 | Outpatient (CLI) | payer MEDICARE ==
--- NOTE | 2023-10-18 09:22 | MM ---
Reason for Exam: Screening (asymptomatic). Last screening mammogram was performed 12 month(s) ago. Patient History: Menarche at age 16. First Full-Term at age 21. Hysterectomy at age 54. Postmenopausal. Estrogen for 8 years from age 54 until age 62. Risk Values: Jammie 5 year model risk: 1.1%. NCI Lifetime model risk: 3.2%. Prior Study Comparison: 04/02/2015 Bilateral Screening Mammogram, [facility]. 04/11/2015 Right Diagnostic Mammogram, [facility]. 10/04/2017 Bilateral Screening Mammogram, [facility]. 08/29/2020 Bilateral Screening Mammogram, [facility]. 10/01/2021 Bilateral MG 3D screening mammo w/cad, [facility]. 10/05/2022 Bilateral MG 3D screening mammo w/cad, [facility]. Tissue Density: There are scattered areas of fibroglandular density. Findings: Analyzed By CAD. Right breast: There is no suspicious group of microcalcifications or new suspicious mass. Left breast: There is no suspicious group of microcalcifications or new suspicious mass. Overall Assessment: Negative, BI-RAD 1 Management: Screening Mammogram of both breasts in [address] [facility] will attempt to contact patient to return for supplemental views and ultrasound if indicated. Patient should continue monthly self-breast exams. A clinical breast exam by your physician is recommended on an annual basis. This exam should not preclude additional follow-up of suspicious palpable abnormalities. Note on Jammie scores and lifetime risk: 1. A Jammie score greater than 3% is considered moderate risk. If this is the case, consider specialist referral to assess eligibility for a risk reducing agent. 2. If overall lifetime risk for the development of breast cancer is 20% or higher, the patient may qualify for future screening with alternating mammogram and breast MRI. Electronically signed and approved by: Rafa Pro DO
== END | disposition home or self-care (01) ==
LOC: RADMAMWWP 10:52
PROVIDERS: ATTEND Family Medicine
DX: Z12.31 Encounter for screening mammogram for malignant neoplasm of breast (principal); R92.323 Mammographic fibroglandular density, bilateral breasts; Z78.0 Asymptomatic menopausal state
CPT/HCPCS: 77063; 77067

== ENCOUNTER 2024-10-16 09:38 | Day surgery (SDC) | payer MEDICARE ==
[2024-10-16] MEDS: IV FLUID CONTINUATION 1,000 ML IV ONE (10:20)
[2024-10-16] MEDS: LACTATED RINGERS 1,000 ML IV SCH (10:25)
[2024-10-16 10:27] VITALS: TEMP 97.4
[2024-10-16] MEDS ORDERED: PROPOFOL 10 MG/ML 20 ML VIAL IV ONE (11:13)
--- NOTE | 2024-10-16 11:27 | P.PCN ---
Date of Procedure: 10/16/24 Procedure(s) Performed: BRIEF HISTORY: Patient is a 74-year-old pleasant white female scheduled for an elective colonoscopy as a part of evaluation intermittent lower abdominal pain and change in bowel habits for the last several months duration. PROCEDURE PERFORMED: Colonoscopy. PREOPERATIVE DIAGNOSIS: Lower abdominal pain and change in bowel habits. IV sedation per Anesthesia. PROCEDURE: After informed consent was obtained, the patient, was brought into the endoscopy unit. IV sedation was administered by Anesthesia under continuous monitoring. Digital rectal examination was normal. Initially the Olympus CF-160 flexible video colonoscope was then inserted in the rectum, gradually advanced into the cecum without any difficulty. Careful examination was performed as the scope was gradually being withdrawn. Ileocecal valve and the appendiceal orifice were visualized and appeared normal. Prep was excellent. Mucosa of the cecum, ascending colon, transverse colon, descending colon, sigmoid colon, and rectum appeared normal. Scattered sigmoid diverticulosis. Retroflexion was performed in the rectum and no lesions were seen. The patient tolerated the procedure well. IMPRESSION: Normal-appearing colon from rectum to cecum with no evidence of colorectal neoplasia Scattered sigmoid diverticulosis. RECOMMENDATIONS: Findings of this examination were discussed with the patient as well as her family.. She was advised to be on a high-fiber diet and take fiber supplements on a regular basis. Recommended repeat screening colonoscopy at age 82.
[2024-10-16 11:49] VITALS: BP 127/77; PULSE 65; RESP 16
== END 2024-10-16 12:06 | disposition home or self-care (01) ==
LOC: ORWHC2ENDO 09:38
PROVIDERS: ATTEND Internal Medicine Gastroenterology
DX: K57.30 Diverticulosis of large intestine without perforation or abscess without bleeding (principal); I10 Essential (primary) hypertension; I34.1 Nonrheumatic mitral (valve) prolapse; K21.9 Gastro-esophageal reflux disease without esophagitis; Z79.82 Long term (current) use of aspirin; Z79.899 Other long term (current) drug therapy; Z90.49 Acquired absence of other specified parts of digestive tract; Z96.643 Presence of artificial hip joint, bilateral; Z88.0 Allergy status to penicillin
CPT/HCPCS: 45378; J2704

== ENCOUNTER → 2024-10-17 | Outpatient (CLI) | payer MEDICARE ==
--- NOTE | 2024-10-17 16:29 | MM ---
Reason for Exam: Screening (asymptomatic). Last screening mammogram was performed 12 month(s) ago. Patient History: Menarche at age 16. First Full-Term at age 21. Hysterectomy at age 54. Postmenopausal. Estrogen for 8 years from age 54 until age 62. Risk Values: Jammie 5 year model risk: 1.2%. NCI Lifetime model risk: 3.0%. Prior Study Comparison: 10/01/2021 Bilateral MG 3D screening mammo w/cad, [facility]. 10/05/2022 Bilateral MG 3D screening mammo w/cad, [facility]. 10/13/2023 Bilateral MG 3D screening mammo w/cad, [facility]. Tissue Density: The breasts are heterogeneously dense, which may obscure small masses. Findings: Analyzed By CAD. There is no suspicious group of microcalcifications or new suspicious mass in either breast. Overall Assessment: Negative, BI-RAD 1 Management: Screening Mammogram of both breasts in 1 year. Patient should continue monthly self-breast exams. A clinical breast exam by your physician is recommended on an annual basis. This exam should not preclude additional follow-up of suspicious palpable abnormalities. Note on Jammie scores and lifetime risk: 1. A Jammie score greater than 3% is considered moderate risk. If this is the case, consider specialist referral to assess eligibility for a risk reducing agent. 2. If overall lifetime risk for the development of breast cancer is 20% or higher, the patient may qualify for future screening with alternating mammogram and breast MRI. [facility], , 10/17/2024 4:26 PM. Electronically signed and approved by: Grayson Child M.D. Radiologist
== END | disposition home or self-care (01) ==
LOC: RADMAMWWP 12:05
PROVIDERS: ATTEND Family Medicine
DX: Z12.31 Encounter for screening mammogram for malignant neoplasm of breast (principal); R92.333 Mammographic heterogeneous density, bilateral breasts; Z78.0 Asymptomatic menopausal state
CPT/HCPCS: 77063; 77067